=== PATIENT | female | born 1975 | race American Indian/Alaskan Native ===

== ENCOUNTER 2021-01-28 07:01 | Day surgery (SDC) | payer MEDICAID ==
[2021-01-23 10:47] LABS: Hematocrit 38.3 % (30.3-42.9); Hemoglobin 12.6 gm/dl (10.1-14.3); Mean Corpuscular HGB Conc 33 % (30-34); Mean Corpuscular Volume 88 fl (79-97); Platelet Count 325 K/mm3 (140-440); Red Blood Count 4.37 M/mm3 (3.65-5.03); Red Cell Distribution Width 14.5 % (13.2-15.2)
--- NOTE | 2021-01-23 11:00 | Anesthesia Consultation ---
Anesthesia Consult and Med Hx Date of service: 01/28/21 - Airway Anesthetic Teeth Evaluation: Good ROM Head & Neck: Adequate Mental/Hyoid Distance: Adequate Mallampati Class: Class III Intubation Access Assessment: Probably Good - Pre-Operative Health Status ASA Pre-Surgery Classification: ASA3 Proposed Anesthetic Plan: General - Pulmonary Hx Smoking: No Hx Respiratory Symptoms: No (+2FS) - Cardiovascular System Hx Cardia Arrhythmia: Yes (In the past; Had ECG in 2013 and resolved per pt. ECG today-SR) Hx Heart Murmur: Yes ( A CHILD) - Central Nervous System Hx Neuromuscular Disorder: Yes (Arthritis) Hx Psychiatric Problems: No - Hematic Hx Sickle Cell Disease: No - Other Systems Hx Alcohol Use: No Hx Substance Use: No Hx Cancer: No Hx Obesity: Yes
[2021-01-23 11:02] LABS: Blood Urea Nitrogen 11 mg/dL (7-17); Calcium 8.5 mg/dL (8.4-10.2); Hemolysis Index 0
[2021-01-23 11:09] LABS: BUN/Creatinine Ratio 16
--- NOTE | 2021-01-24 17:42 | Electrocardiograph Report ---
[facility] Test Date: 2021-01-23 Test Time: 10:21:08 Pat Name: FRANKLIN SEARS Department: Room: Gender: F Nursing Home Director: BRANDON : 1975 Requested By: NIKKI REID Order Number: [id number] Reading MD: Gerry Winter Measurements Intervals [place] Rate: 64 P: 58 [place]: 149 QRS: 50 QRSD: 88 T: 39 QT: 421 QTc: 436 Interpretive Statements Sinus rhythm No previous ECG available for comparison Electronically Signed On 01-24-2021 17:42:26 EDT by Gerry Winter
[~2021-01-28 07:01] MED LIST: LACTATED RINGERS 1,000 ML IV SCH; MIDAZOLAM 2 MG/2 ML INJ IV NR; VANCOMYCIN 2,000 MG in SODIUM CHLORIDE 0.9% 500 ML 500 ML IV SCH; VANCOMYCIN/NS 1 GM/250 ML 1 GM/250 ML BAG IV NR
[2021-01-28] MEDS ORDERED: LIDOCAINE MPF (2%) 20 MG/1 ML VIAL 5 ML ONE (07:14)
[2021-01-28] MEDS ORDERED: propofoL 200 MG/20 ML VIAL IV ONE (07:15)
[2021-01-28] MEDS ORDERED: dexAMETHasone 20 MG/5 ML VIAL ONE (07:16)
[2021-01-28] MEDS ORDERED: ONDANSETRON 4 MG/2 ML INJ ONE ×2 (07:16→13:21)
[2021-01-28] MEDS ORDERED: LIDOCAINE-MPF (1%) 10 MG/1 ML VIAL 5 ML ONE (07:25)
[2021-01-28] MEDS ORDERED: BUPIVACAINE/PF (0.25%) 2.5 MG/ML 30 ML VIAL INFILTRATI ONE ×2 (07:25→11:08)
[2021-01-28] MEDS ORDERED: LIDOCAINE (1%) 10 MG/1 ML VIAL 20 ML MDV ONE ×2 (07:53→10:37)
[2021-01-28] MEDS ORDERED: VANCOMYCIN/NS 1 GM/250 ML 1 GM/250 ML BAG IV NR (08:00)
[2021-01-28] MEDS ORDERED: VANCOMYCIN 2,000 MG in SODIUM CHLORIDE 0.9% 500 ML 500 ML IV SCH (09:00)
[2021-01-28] MEDS ORDERED: ONDANSETRON 4 MG/2 ML INJ IV PRN (09:02)
[2021-01-28] MEDS ORDERED: oxyCODONE /ACETAMINOPHEN 5-325MG TAB PO PRN (09:02)
[2021-01-28] MEDS ORDERED: HYDROmorphone 1 MG/1 ML INJ IV PRN (09:02)
--- NOTE | 2021-01-28 09:02 | Anesthesia Day of Surgery ---
Anesthesia Day of Surgery - Day of Surgery Patient Examined: Yes Patient H&P Reviewed: Yes Patient is NPO: Yes
[2021-01-28] MEDS ORDERED: metroNIDAZOLE/NS 500 MG/100 ML 0 MG/0 ML BAG IV ONE (10:02)
[2021-01-28] MEDS ORDERED: HYDROmorphone 1 MG/1 ML INJ ONE (10:31)
[2021-01-28] MEDS ORDERED: LIDOCAINE (1%) 10 MG/1 ML VIAL 20 ML MDV INFILTRATI ONE (11:08)
--- NOTE | 2021-01-28 11:16 | Mammography Report ---
MAMMOGRAPHIC GUIDED LEFT BREAST NEEDLE LOCALIZATION, 01/28/2021 CLINICAL INFORMATION / INDICATION: LT BREAST MASS. COMPARISON: Previous outside studies were reviewed. PROCEDURE: Risks, benefits and indications to the procedure were discussed with the patient. The patient agreed to proceed with both verbal and written consent. A timeout procedure was performed with 2 patient hardeep ntifiers. The breast was prepped with betadine in the usual sterile fashion. Approximately 5 cc of Lidocaine 1% was used for local anesthesia. Under direct digital mammographic guidance, a localization wire was p laced in satisfactory position with distal tip traversing the targeted lesion. Post-biopsy mammogram confirms satisfactory positioning of the localization wire. The wire was secured to the skin with a s terile dressing. The patient tolerated procedure without difficulty. No complications were encountered. IMPRESSION: 1. Satisfactory mammographic guided wire localization of the left breast. Signer Name: Pritesh Jones Jr, MD Signed: 01/28/2021 11:12 AM Workstation Name: [id number]
[2021-01-28] MEDS ORDERED: BACITRACIN ZINC OINT 28.4 GM TP ONE ×2 (12:18→12:23)
--- NOTE | 2021-01-28 12:35 | Short Stay Summary ---
Short Stay Documentation Date of service: 01/28/21 - History H&P: obtained from office - Allergies and Medications Current Medications: Allergies latex Allergy (Verified 01/22/21 11:49) Swelling naproxen Allergy (Verified 01/22/21 11:49) Itching Penicillins Allergy (Verified 01/22/21 11:49) Itching Home Medications Medication Instructions Recorded Confirmed Last Taken Type RX: Ibuprofen [Motrin 800 MG tab] 800 mg PO Q8HR PRN #10 tablet 01/28/21 Unknown Rx Active Medications Hydromorphone HCl (Hydromorphone 1 Mg/1 Ml Inj) 0.5 mg IV Q10MIN PRN PRN Reason: Pain , Severe (7-10) Stop: 01/28/21 23:00 Lactated Ringer's (Lactated Ringers) 1,000 mls @ 125 mls/hr IV DIRECT ABISAI Last Admin: 01/28/21 09:05 Dose: 125 mls/hr Documented by: Vancomycin HCl 2,000 mg/ (Sodium Chloride) 540 mls @ 250 mls/hr IV PREOP ABISAI Stop: 01/28/21 13:00 Last Admin: 01/28/21 09:45 Dose: 250 mls/hr Documented by: Midazolam HCl (Midazolam 2 Mg/2 Ml Inj) 2 mg IV PREOP NR Stop: 01/28/21 23:59 Last Admin: 01/28/21 09:15 Dose: 2 mg Documented by: Oxycodone/Acetaminophen (Oxycodone /Acetaminophen 5-325mg Tab) 1 tab PO ONCE PRN PRN Reason: Pain, Moderate (4-6) Stop: 01/28/21 20:00 - Brief post op/procedure progress note Date of procedure: 01/28/21 Pre-op diagnosis: Left breast atpia Post-op diagnosis: same Procedure: Left breast needle localization excisional biopsy Anesthesia: GETA Findings: Wire present Surgeon: BERTHA RUBIO Estimated blood loss: minimal Pathology: list Specimen disposition: to lab (left breast excisional biopsy) Condition: stable - Disposition Condition at discharge: Good Disposition: DC- TO HOME OR SELFCARE Short Stay Discharge Plan Activity: other (no heavy lifting) Diet: regular Wound: keep clean and dry (wear breast binder; no baths; may shower in 48 hours; apply bacitracin twice daily) Follow up with: BERTHA RUBIO MD [Staff Physician] - 7 Days Prescriptions: RX: Ibuprofen [Motrin 800 MG tab] 800 mg PO Q8HR PRN #10 tablet PRN Reason: Pain , Severe (7-10)
--- NOTE | 2021-01-28 12:45 | Operative Report ---
Operative Report Operative Report: Operative Report: January 28, 2021 Preoperative diagnosis: Left breast atypia of lower outer/central quadrant Postoperative diagnosis: Same Procedure: Left breast needle localization excisional biopsy of the lower outer/central quadrant Surgeon: Brenda Wright MD Anesthesia: General Findings: Left wire present within radiograph specimen Complications: None EBL: Minimal, less than 50 cc Disposition: PACU in good condition Indications for operative procedure: This is a 45 year old lady with recent abnormal left mammogram of asymmetry of the lower outer/central quadrant. Stereotactic breast biopsy performed with findings of radial scar with atypical intraductal proliferation. Recommendations are to proceed with left needle localization excisional biopsy to rule out malignancy given atypia. She wished to proceed with the above procedure and understood additional procedures may be indicated pending final pathology if malignancy was identified. Procedure in detail: The patient was taken to radiology for wire placement for localization of the area of concern. Patient was then taken to the operating room. Gen. anesthesia was administered. Left breast and axilla were prepped and draped in the normal sterile operative fashion. The wire was identified around 5:00 position. Timeout was performed. Attention was then taken towards the left breast. Wire was located in the lower outer/central quadrant. A breast incision around 5:00 position was made with a 15 blade knife and dissection taken down to subcutaneous tissues. First began raising of the superior flap with removal of the wire from the skin with dissection taken past the area of concern and then taken down posteriorly, followed by raising of the inferior flap, medial flap and lateral flap with all flaps taken past the area of concern and then posteriorly past the wire. The breast area of concern was appropriately removed posteriorly with the aid of the Bovie cautery. The wire was not encountered. Specimen was marked and then sent to pathology and radiology; radiograph specimen with wire present but clip not seen; wire was not encountered during the procedure and specimen appropriately excised with tissue surrounding the wire. Additional superior margin was taken as well using the bovie cautery but this area was past the wire. Discussed with radiologist as well with his findings of good surgical specimen. Clip most probably was dislodged during excision. Breast cavity was irrigated and hemostasis was obtained. The posterior deep breast tissues were approximated and closed using interrupted 3-0 Vicryl. The subcutaneous tissues were then approximated and closed using interrupted 3-0 Vicryl followed by closing of the skin with a running 4-0 Monocryl and skin affix. The patient tolerated surgery very well and she was awaken from anesthesia without any complication and transported to PACU in good condition.
[2021-01-28] MEDS ORDERED: ONDANSETRON 4 MG/2 ML INJ IV NR (13:20)
--- NOTE | 2021-01-28 14:07 | Mammography Report ---
LEFT BREAST SPECIMEN RADIOGRAPH, 01/28/2021 INDICATION: Left breast target lesion: . COMPARISON: Needle localization films performed earlier today FINDINGS: 2 specimens are presented, one of which contains the wire. The clip that was targeted on the needle l ocalization earlier today is not identified in either specimen. The clip may have fallen out or been suctioned during surgery. Please correlate with margins on the pathology report. These findings were discussed with Dr. Wright at 1210 hours EST. IMPRESSION: Probable satisfactory excision of the target lesion although the clip is not included and the specime ns as outlined above. Please correlate with the formal report from pathology. Signer Name: Pritesh Jones Jr, MD Signed: 01/28/2021 2:03 PM Workstation Name: [id number]
--- NOTE | 2021-01-28 14:07 | Post Anesthesia Evaluation ---
- Post Anesthesia Evaluation Patient Participated: Yes Airway Patent: Yes Stable Respiratory Function: Yes Nausea/Vomiting: No Temp > 96.8F: Yes Pain Manageable: Yes Adequeate Hydration: Yes Anesthesia Complications: No
[2021-01-28 14:35] VITALS: BP 121/67
== END 2021-01-28 07:02 | disposition home or self-care (01) ==
LOC: OR 07:01
PROVIDERS: ATTEND Surgery
DX: N64.89 Other specified disorders of breast (principal); N63.23 Unspecified lump in the left breast, lower outer quadrant; M19.90 Unspecified osteoarthritis, unspecified site; E66.9 Obesity, unspecified; Z20.822 Contact with and (suspected) exposure to COVID-19; Z79.899 Other long term (current) drug therapy; Z88.8 Allergy status to other drugs, medicaments and biological substances; Z91.040 Latex allergy status; Z90.49 Acquired absence of other specified parts of digestive tract; Z98.890 Other specified postprocedural states; Z68.41 Body mass index [BMI] 40.0-44.9, adult
CPT/HCPCS: 19125; 19281; 36415; 76098; 80048; 84703; 85027; 88307; 88341; 88342; 93005; A4648; J1100; J1170; J2250; J2405; J2704; J3370; J7040; J7120; U0003

== ENCOUNTER 2021-05-23 06:58 | Day surgery (SDC) | payer MEDICAID ==
[2021-05-15 10:12] LABS: Hematocrit 36.3 % (30.3-42.9); Hemoglobin 12.1 gm/dl (10.1-14.3); Mean Corpuscular HGB Conc 33 % (30-34); Mean Corpuscular Volume 86 fl (79-97); Platelet Count 238 K/mm3 (140-440); Red Blood Count 4.25 M/mm3 (3.65-5.03); Red Cell Distribution Width 14.4 % (13.2-15.2)
[~2021-05-23 06:58] MED LIST changes: +ACETAMINOPHEN 500 MG TAB PO SCH; +BUPIVACAINE/PF (0.25%) 2.5 MG/ML 30 ML VIAL INFILTRATI ONE; +GABAPENTIN 300 MG CAP PO NR; +LIDOCAINE (1%) 10 MG/1 ML VIAL 20 ML MDV INFILTRATI ONE; +SCOPOLAMINE TRANSDERMAL PATCH 72 HR TD NR; +VANCOMYCIN 1,750 MG in SODIUM CHLORIDE 0.9% 500 ML 500 ML IV SCH; -VANCOMYCIN 2,000 MG in SODIUM CHLORIDE 0.9% 500 ML 500 ML IV SCH; +WATER FOR IRRIG STERILE 1,500 ML BOTTLE IR ONE
[2021-05-23] MEDS ORDERED: LIDOCAINE (1%) 10 MG/1 ML VIAL 20 ML MDV ONE ×2 (08:05→10:32)
--- NOTE | 2021-05-23 08:46 | Anesthesia Consultation ---
Anesthesia Consult and Med Hx Date of service: 05/23/21 - Airway Anesthetic Teeth Evaluation: Good ROM Head & Neck: Adequate Mental/Hyoid Distance: Adequate Mallampati Class: Class III Intubation Access Assessment: Possibly Difficult - Pre-Operative Health Status ASA Pre-Surgery Classification: ASA3 Proposed Anesthetic Plan: General - Pulmonary Hx Smoking: No Hx Respiratory Symptoms: No - Cardiovascular System Hx Hypertension: No Hx Heart Attack/AMI: No - Central Nervous System CVA: No - Endocrine Hx Renal Disease: No Hx Liver Disease: No Hx Insulin Dependent Diabetes: No Hx Non-Insulin Dependent Diabetes: No Hx Thyroid Disease: No - Other Systems Hx Obesity: Yes (BMI 43) - Additional Comments Anesthesia Medical History Comments: No hx anesthetic complications.
--- NOTE | 2021-05-23 08:46 | Anesthesia Day of Surgery ---
Anesthesia Day of Surgery - Day of Surgery Patient Examined: Yes Patient H&P Reviewed: Yes Patient is NPO: Yes
--- NOTE | 2021-05-23 09:18 | Mammography Report ---
MAMMOGRAPHIC GUIDED LEFT BREAST NEEDLE LOCALIZATION, 05/23/2021 CLINICAL INFORMATION / INDICATION: LT BREAST MASS CLIP. COMPARISON: 04/26/2021 PROCEDURE: Risks, benefits and indications to the procedure were discussed with the patient. The patient agreed to proceed with both verbal and written consent. A timeout procedure was performed with 2 patient hardeep ntifiers. The breast was prepped with betadine in the usual sterile fashion. Approximately 5 cc of Lidocaine 1% was used for local anesthesia. Under direct digital mammographic guidance, 2 localization wires were placed bracketing 2 surgical clips in the lateral left breast. Post-biopsy mammogram confirms satisf actory positioning of the localization wires. The wires were secured to the skin with a sterile dress ing. The patient tolerated procedure without difficulty. No complications were encountered. IMPRESSION: 1. Satisfactory mammographic guided wire localization/bracketing of the left breast lesion. Signer Name: Pritesh Jones Jr, MD Signed: 05/23/2021 9:14 AM Workstation Name: [id number]
[2021-05-23] MEDS ORDERED: oxyCODONE /ACETAMINOPHEN 5-325MG TAB PO PRN (09:30)
[2021-05-23] MEDS ORDERED: ONDANSETRON 4 MG/2 ML INJ IV PRN (09:30)
[2021-05-23] MEDS ORDERED: fentaNYL 100 MCG/2 ML INJ ONE ×2 (09:31→09:51)
[2021-05-23] MEDS ORDERED: LIDOCAINE MPF (2%) 20 MG/1 ML VIAL 5 ML ONE (09:51)
[2021-05-23] MEDS ORDERED: propofoL 200 MG/20 ML VIAL IV ONE (09:51)
[2021-05-23] MEDS ORDERED: fentaNYL 100 MCG/2 ML INJ IV ONE ×2 (09:56→11:00)
[2021-05-23] MEDS ORDERED: diphenhydrAMINE 50 MG/ML VIAL IV ONE (10:32)
[2021-05-23] MEDS ORDERED: BUPIVACAINE/PF (0.25%) 2.5 MG/ML 30 ML VIAL INFILTRATI ONE ×2 (10:32→13:12)
[2021-05-23] MEDS ORDERED: diphenhydrAMINE 50 MG/ML VIAL ONE (10:33)
--- NOTE | 2021-05-23 10:51 | Short Stay Summary ---
Short Stay Documentation Date of service: 05/23/21 - History H&P: obtained from office - Allergies and Medications Current Medications: Allergies latex Allergy (Verified 05/08/21 13:07) Swelling naproxen Allergy (Verified 05/08/21 13:07) Itching Penicillins Allergy (Verified 05/08/21 13:07) Itching Home Medications Medication Instructions Recorded Confirmed Last Taken Type Tamoxifen Citrate 20 mg PO DAILY 05/08/21 05/08/21 Unknown History Active Medications Acetaminophen (Acetaminophen 500 Mg Tab) 1,000 mg PO PREOP ABISAI Stop: 05/23/21 20:00 Last Admin: 05/23/21 07:53 Dose: 1,000 mg Documented by: Fentanyl (Fentanyl 100 Mcg/2 Ml Inj) 50 mcg IV ONCE ONE Stop: 05/23/21 11:01 Gabapentin (Gabapentin 300 Mg Cap) 300 mg PO PREOP NR Stop: 05/23/21 20:00 Last Admin: 05/23/21 07:53 Dose: 300 mg Documented by: Hydromorphone HCl (Hydromorphone 1 Mg/1 Ml Inj) 0.5 mg IV Q10MIN PRN PRN Reason: Pain , Severe (7-10) Stop: 05/23/21 17:00 Vancomycin HCl 1,750 mg/ (Sodium Chloride) 535 mls @ 333.333 mls/hr IV PREOP ABISAI Stop: 05/23/21 20:00 Last Admin: 05/23/21 10:06 Dose: 333.333 mls/hr Documented by: Lactated Ringer's (Lactated Ringers) 1,000 mls @ 100 mls/hr IV DIRECT ABISAI Stop: 05/23/21 23:59 Last Admin: 05/23/21 08:37 Dose: 100 mls/hr Documented by: Midazolam HCl (Midazolam 2 Mg/2 Ml Inj) 2 mg IV PREOP NR Stop: 05/23/21 23:00 Last Admin: 05/23/21 08:55 Dose: 2 mg Documented by: Ondansetron HCl (Ondansetron 4 Mg/2 Ml Inj) 4 mg IV ONCE PRN PRN Reason: Nausea And Vomiting Stop: 05/23/21 17:00 Oxycodone/Acetaminophen (Oxycodone /Acetaminophen 5-325mg Tab) 1 tab PO ONCE PRN PRN Reason: Pain, Moderate (4-6) Stop: 05/23/21 17:00 Scopolamine (Scopolamine Transdermal Patch 72 Hr) 1 each TD PREOP NR Stop: 05/23/21 23:00 Last Admin: 05/23/21 08:38 Dose: 1 each Documented by: - Brief post op/procedure progress note Date of procedure: 05/23/21 Pre-op diagnosis: Left breast margin revision Post-op diagnosis: same Procedure: Left breast margin revision Anesthesia: GETA Findings: Wires and clips present Surgeon: BERTHA RUBIO Estimated blood loss: minimal Pathology: list Specimen disposition: to lab Condition: stable - Disposition Condition at discharge: Good Disposition: 01 HOME / SELF CARE / HOMELESS Short Stay Discharge Plan Activity: other (no heavy lifting) Diet: regular Wound: keep clean and dry (may shower in 48 hours; no baths, pools or lakes; apply bacitracin twice daily; wear breast binder) Follow up with: BERTHA RUBIO MD [Staff Physician] - 7 Days Prescriptions: traMADoL [Ultram 50 MG tab] 50 mg PO Q6HR PRN #12 tablet PRN Reason: Pain
--- NOTE | 2021-05-23 11:00 | Operative Report ---
Operative Report Operative Report: Operative Report: Date of Service: May 23, 2021 Preoperative diagnosis: Left breast cancer of the lower outer quadrant with abnormal breast MRI of suspicious lateral breast enhancement Postoperative diagnosis:Same Procedure: Left needle localization breast margin revision and placement of Biozorb 3x3 cm Surgeon: Brenda Wright MD Data Warehouse Manager: Aury Pham MD Anesthesia: General Findings: Radiograph specimen with clips and wires present; Biozorb lot [id number] 3x3 cm Complications: None EBL: Minimal Disposition: PACU in good condition Indications for operative procedure: This is a 45 year old lady with newly diagnosed Stage 0 left breast cancer of the lower outer quadrant, [id number] ER positive. 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 Final pathology with biopsy site changes present but clip not present. Followup left mammogram recommended with findings of breast clip present. Breast MRI obtained with suspicious lateral breast enhancement and recommendation for surgical excision given the possibility of residual disease. Recommendations as discussed with patient was to have radiologist localize clip and then proceed with lateral breast margin revision as well as excision of prior breast clip that would be localized by radiologist. Final pathology with surgical margins negative and closest margin of 2 mm from posterior margin. Patient wished to proceed with the above procedure. Procedure in detail: Radiologist placed wire at prior biopsy clip. The patient was then taken to the operating room and was placed supine. General anesthesia was administered. The left breast was prepped and draped in the normal sterile operative fashion. Timeout was performed. Lateral breast wires were present. Ultrasound used as well to identify the seroma cavity of surgical site. Skin incision was made through the prior breast incision with a 15 blade knife of the lateral breast around 4:00 positions. First began raising of the lateral flap with the removal of wires from the skin with dissection taken down posteriorly to pectoralis muscle followed the raising of the medial, superior, inferior and anterior flaps with dissection taken past the wires and then posteriorly down to the pectoralis muscle. The wires were not encountered. The specimen was then removed posteriorly from the pectoralis muslce using the bovie cautery. The specimen was marked. Radiograph specimen with clips and wires present. Specimen was then sent to pathology. Hemostasis was obtained with the Bovie cautery. Given breast cavity size, biozorb was recommended. Then proceeded with placement of BioZorb marker [id number] 3x3 cm. The posterior deep breast tissues were then mobilized to approximate and cover the area of the defect of at least 5-6 cm. The posterior deep breast tissues were approximated and closed using interrupted 3-0 Vicryl. The BioZorb of 3x3 centimeters was then sutured into place using i nterrupted 2-0 PDS, placing 4 sutures. Anterior breast tissue was then approximated and closed using interrupted 3-0 Vicryl. The BioZorb was not easily palpable. The subcutaneous tissues were then approximated and closed using interrupted 3-0 Vicryl followed by closing of the skin with a running 4-0 Monocryl and dermabond. The patient tolerated surgery very well and she was awaken from anesthesia without any complication and transported to PACU in good condition.
[2021-05-23] MEDS ORDERED: CLINDAMYCIN 600 MG/50 mL 600 MG/50 ML BAG IV ONE (11:03)
[2021-05-23] MEDS ORDERED: dexAMETHasone 20 MG/5 ML VIAL ONE (11:11)
[2021-05-23] MEDS ORDERED: ONDANSETRON 4 MG/2 ML INJ ONE (11:11)
[2021-05-23] MEDS ORDERED: KETOROLAC 30 MG/1 ML INJ ONE (11:11)
[2021-05-23] MEDS ORDERED: NEOMY 40 MG/POLYMYXIN B 200,000 UNITS/ML (GU) AMPULE IR ONE (13:11)
[2021-05-23] MEDS ORDERED: LIDOCAINE (1%) 10 MG/1 ML VIAL 20 ML MDV INFILTRATI ONE (13:12)
[2021-05-23] MEDS ORDERED: NEOMY 3.5 MG/BACIT 400 UNITS/POLY B 5000 UNITS/GM OINT PACKET TP ONE (13:25)
[2021-05-23] MEDS ORDERED: WATER FOR IRRIG STERILE 1,500 ML BOTTLE IR ONE (13:25)
--- NOTE | 2021-05-23 14:15 | Mammography Report ---
LEFT BREAST SPECIMEN RADIOGRAPH, 05/23/2021 INDICATION: Left breast target lesion: . COMPARISON: Needle localization performed earlier today FINDINGS: The previously localized target lesion is present in its entirety in the submitted specimen. The localization wires are present. IMPRESSION: 1. Radiographic evidence of satisfactory excision of the target lesion. Signer Name: Pritesh Jones Jr, MD Signed: 05/23/2021 2:09 PM Workstation Name: [id number]
[2021-05-23] MEDS ORDERED: NEOMY 3.5 MG/BACIT 400 UNITS/POLY B 5000 UNITS OINT 15 GM TP ONE (14:28)
[2021-05-23] MEDS: HYDROmorphone 1 MG/1 ML INJ IV PRN ×2 (15:20→15:30)
[2021-05-23 15:42] VITALS: BP 146/77
[2021-05-23] MEDS ORDERED: traMADol 50 MG TAB PO PRN (15:55)
== END 2021-05-23 16:30 | disposition home or self-care (01) ==
LOC: OR 06:58
PROVIDERS: ATTEND Surgery
DX: R92.8 Other abnormal and inconclusive findings on diagnostic imaging of breast (principal); C50.512 Malignant neoplasm of lower-outer quadrant of left female breast; E66.9 Obesity, unspecified; M19.90 Unspecified osteoarthritis, unspecified site; Z79.899 Other long term (current) drug therapy; Z90.49 Acquired absence of other specified parts of digestive tract; Z98.890 Other specified postprocedural states; Z88.0 Allergy status to penicillin; Z91.040 Latex allergy status; Z88.8 Allergy status to other drugs, medicaments and biological substances; Z68.41 Body mass index [BMI] 40.0-44.9, adult; Z20.822 Contact with and (suspected) exposure to COVID-19
CPT/HCPCS: 19125; 19281; 36415; 76098; 81025; 85027; 88307; A4648; A6250; J1100; J1170; J1200; J2250; J2405; J2704; J3010; J3370; J7040; J7120; U0003; J1885